=== PATIENT | female | born 1975 | race Two or more races ===

== ENCOUNTER 2025-03-30 22:12 | Emergency (ER) | payer MEDICAID, SELFPAY ==
[2025-03-30 22:15] VITALS: BMI 25.5
--- NOTE | 2025-03-30 22:56 | PD.EDHA ---
ED Headache RME/HPI General Chief Complaint: Headache Stated Complaint: HEADACH NAUSEA VOMITING Time Seen by Provider: 03/30/25 23:02 Arrival date/time: 03/30/25 22:12 RME / HPI RME / HPI Narrative: This section includes all my notes and documentations, including HPI, PE, and ED course. Ty Mitchell MD HPI: 49 y/o female presents to ED c/o progressively worsening headache x 3 days. Patient also reports epigastric abdominal pain, nausea, and vomiting x 3 days. With low back pain. Denies any fever or cough. No other complaints. ROS: All negative except as documented in HPI. Physical Exam: General: Alert and oriented. Appears uncomfortable. Eyes: Conjunctivae and lids clear. EOMI. PERRL. ENT: No nasal congestion. Pharynx normal. Tympanic membrane normal bilaterally. Neck: Supple. No carotid bruit. No JVD. Heart: RRR. Lungs: No respiratory distress. Good air movement. No rhonchi, wheezing, rales. Abdomen: Soft. Mild epigastric tenderness. Normal bowel sounds. No distension. No rebound or guarding. Back: No CVA tenderness. Skin: Warm and dry. Neuro: Alert and oriented X 3. Cranial Nerves II-XII grossly intact. No peripheral motor deficits. I reviewed all diagnostic test results. My review of the Gall Bladder US report is NAD. My review of the Abdomen/Pelvis CT report is NAD. My review of the Head/Brain CT report is NAD. My review of the Lumbar Spine CT report is NAD. Blood tests and urine tests unremarkable. At this point, diagnoses include probable migraine headache, GERD. Treatment here included Tylenol with Codeine, Zofran, famotidine, and Protonix. Significant improvement noted. Recommended more outpatient care. Based on my best medical judgment, made decision no further evaluation or treatment indicated at this time. Patient understands and agrees to the discharge instructions customized and printed, see below. Discharge Instructions from Dr. Mitchell printed for you: 1. After evaluation, your headache is probably due to migraine headache. And your abdominal pain is due to acid reflux. See attached handouts. There is no life-threatening condition. Such as stroke or brain tumor. 2. Zofran for nausea/vomiting. Tylenol with codeine for severe pain. 3. For acid reflux, famotidine and omeprazole as needed. 4. Avoid foods/beverages that can trigger acid reflux, see attached handout. 5. See a private doctor on 04/02/2025 for recheck and further care. Ask to review all test results and official radiology reports, to make sure you receive all necessary follow-ups and monitoring. To make sure there is no serious intra-abdominal condition, ask for help with more investigation not available here in the ER. Such as EGD or scoping the stomach, colonoscopy or scoping the colon, and referral to see latex thread machine operator. If your headache is persistent, ask for a referral to see neurologist and MRI imaging of the brain. 6. Seek immediate medical care with worsening or with any concerns. Ty Mitchell MD Related Data Previous Rx's ?Medication ?Instructions ?Recorded acetaminophen 300 mg-codeine 30 mg 2 tab PO Q8H PRN pain #20 tabs 03/31/25 tablet famotidine 40 mg tablet 40 mg PO .bedtime #30 tabs 03/31/25 omeprazole 40 mg capsule,delayed 40 mg PO QDAY #30 caps 03/31/25 release ondansetron 4 mg disintegrating 4 mg PO TID PRN nausea and 03/31/25 tablet vomiting 30 days #10 tabs Allergies Allergy/AdvReac Type Severity Reaction Status Date / Time No Known Allergies Allergy Verified 03/30/25 22:19 Review of Systems Review of Systems Systems Reviewed: All systems reviewed, normal except as documented Past Medical History Surgical History SURGICAL: Positive Tubal Ligation Social History SMOKING STATUS: Never smoker ED Exam Narrative Physical exam: Refer to HPI above Course Quality Measures none Orders Category Date Time Status CT abdomen pelvis wo con Stat Exams 03/30/25 22:[address] head/brain wo con Stat Exams 03/30/25 22:[address] lumbar spine wo con Stat Exams 03/30/25 22:58 Taken US gall bladder Stat Exams 03/30/25 22:59 Taken Amylase Stat Lab 03/30/25 23:16 Completed Bilirubin,Direct Stat Lab 03/30/25 23:16 Completed CBC Stat Lab 03/30/25 23:16 Completed CMP [Comprehensive Metabolic Panel] Stat Lab 03/30/25 23:16 Completed Lipase Stat Lab 03/30/25 23:16 Completed Magnesium Stat Lab 03/30/25 23:16 Completed UA, C/S IF [Urinalysis, C/S if Indicated] Stat Lab 03/30/25 23:29 Completed ACETAMINOPHEN w/COD 300-30 [Tylenol w/Cod #3] Med 03/30/25 22:57 Discontinued 2 tab PO X1 ONE Famotidine [Pepcid] Med 03/31/25 00:33 Discontinued 40 mg PO X1 ONE Ondansetron Odt [Zofran Odt] Med 03/30/25 22:57 Discontinued 4 mg PO X1 ONE Pantoprazole [Protonix] Med 03/31/25 00:33 Discontinued 40 mg PO X1 ONE Vital Signs Vital signs: Vital Signs Temperature 98 F 03/30/25 23:23 Pulse Rate 62 03/30/25 23:23 Respiratory Rate 18 03/30/25 23:23 Blood Pressure 134/74 H 03/30/25 23:23 Pulse Oximetry (%) 99 03/30/25 23:23 Oxygen Delivery Method Room Air 03/30/25 23:23 Headache MDM Narrative MDM Narrative:: Scribe Attestation: IIraida, am scribing for and in the presence of Dr. Mitchell. Provider Notation: Although this document has been carefully reviewed, there may still be some phonetic and other typographical errors.? These errors are purely grammatical due to imperfections in the software program and should not be construed in any way to? compromise the substance of the patient's medical care during this visit. 49 y/o female presents to ED c/o progressively worsening headache x 3 days that is worse today. Patient also reports left flank pain, abdominal pain, nausea, and vomiting x 3 days. Denies any fever or cough. No other complaints. Patient data External records reviewed:: [facility] previous records (No prior ED records available for review) Clinical information provided by:: patient Social determinants that could affect healthcare access:: none Patient has the following chronic illnesses:: None reported How is presenting disease/condition affected by chronic disease/condition?: no chronic disease Evaluation data The following diagnostics were reviewed and interpreted by me:: lab results and radiology exam(s) Lab and/or radiology exams considered but not ordered:: None Interpretation Summary: I reviewed all diagnostic test results. My review of the Gall Bladder US report is NAD. My review of the Abdomen/Pelvis CT report is NAD. My review of the Head/Brain CT report is NAD. My review of the Lumbar Spine CT report is NAD. Blood tests and urine tests unremarkable. Medications / Prescriptions Medications or Prescriptions considered but not ordered:: None Medication administrations:: Medication Administration History Discontinued Medications Acetaminophen/Codeine Phosphate (Acetaminophen W/Cod 300-30 Tablet) 2 tab PO X1 ONE Stop: 03/30/25 22:58 Last Admin: 03/30/25 23:23 Dose: 2 tab Documented By: RONALD Famotidine (Famotidine 20 Mg Tablet) 40 mg PO X1 ONE Stop: 03/31/25 00:34 Last Admin: 03/31/25 01:03 Dose: 40 mg Documented By: JEREMY Ondansetron HCl (Ondansetron Odt 4 Mg Tabrap) 4 mg PO X1 ONE; Protocol Stop: 03/30/25 22:58 Last Admin: 03/30/25 23:22 Dose: 4 mg Documented By: RONALD Pantoprazole Sodium (Pantoprazole 40 Mg Tablet) 40 mg PO X1 ONE Stop: 03/31/25 00:34 Last Admin: 03/31/25 01:03 Dose: 40 mg Documented By: JEREMY Tylenol with Codeine, Zofran, famotidine, and Protonix. Consultations Consultation(s) initiated? (list below): No Diagnosis Differential diagnosis headache: migraine, tension headache, subarachnoid hemorrhage, headache, postconcussion syndrome and other (Gastritis, GERD, renal colic) Most likely diagnosis given after review of the tests above:: Headache, GERD Admission Indicated Admission indicated?: not indicated Explain why admission is indicated or not indicated:: With significant improvement, there was no indication for admission. Admission Request Was there a request for admission?: No Disposition Plan Disposition Plan: Discharge Discharge Attestation Discharge Attestation: The patient and all family members were given an opportunity to ask questions and understood the discharge instructions. Discharge instructions specifically effects, indications for sooner follow up or return to the emergency department, and the expected course of current diagnosis. Patient condition: Stable Discharge Plan Plan Patient Disposition: HOME (Self Care) Prescriptions/Referrals Prescriptions/Med Rec: New famotidine 40 mg tablet 40 mg PO .bedtime Qty: 30 0RF acetaminophen-codeine 300-30 mg tablet 2 tab PO Q8H MDD 6 PRN (Reason: pain) Qty: 20 0RF omeprazole 40 mg capsule,delayed release(DR/EC) 40 mg PO QDAY Qty: 30 0RF ondansetron 4 mg tablet,disintegrating 4 mg PO TID PRN (Reason: nausea and vomiting) 30 Days Qty: 10 0RF Referrals: Deepak Cee MD [Primary Care Provider] - In 1 week Problem List Clinical Impression: Headache, GERD (gastroesophageal reflux disease) Patient/Caregiver Discharge Instructions Discharge Activity: activity as tolerated Education Materials: ED GERD (Adult), ED Headache, Migraine, Classic Additional Instructions: Discharge Instructions from Dr. Mitchell printed for you: 1. After evaluation, your headache is probably due to migraine headache. And your abdominal pain is due to acid reflux. See attached handouts. There is no life-threatening condition. Such as stroke or brain tumor. 2. Zofran for nausea/vomiting. Tylenol with codeine for severe pain. 3. For acid reflux, famotidine and omeprazole as needed. 4. Avoid foods/beverages that can trigger acid reflux, see attached handout. 5. See a private doctor on 04/02/2025 for recheck and further care. Ask to review all test results and official radiology reports, to make sure you receive all necessary follow-ups and monitoring. To make sure there is no serious intra-abdominal condition, ask for help with more investigation not available here in the ER. Such as EGD or scoping the stomach, colonoscopy or scoping the colon, and referral to see latex thread machine operator. If your headache is persistent, ask for a referral to see neurologist and MRI imaging of the brain. 6. Seek immediate medical care with worsening or with any concerns. Instrucciones de henrique del Dr. Mitchell, impresas para usted: 1. Tras la evaluaci?n, wong dolor de jay probablemente se deba a herbert migra?a. Y wong dolor abdominal se debe a reflujo ?cido. Consulte los folletos adjuntos. No existe ninguna afecci?n potencialmente mortal, ivonne un derrame cerebral o un tumor cerebral. 2. Zofran para las n?useas y los v?mitos. Tylenol con code?na para el dolor intenso. 3. Para el reflujo ?cido, famotidina y omeprazol seg?n sea necesario. 4. Evite los alimentos y bebidas que puedan desencadenar el reflujo ?cido. Consulte el folleto adjunto. 5. Consulte con un m?dico particular el 02/04/2025 para herbert nueva revisi?n y atenci?n adicional. Solicite la revisi?n de todos los resultados de las pruebas y los informes radiol?gicos oficiales para asegurarse de recibir todos los seguimientos y la monitorizaci?n necesarios. Para asegurarse de que no exista herbert afecci?n intraabdominal grave, solicite ayuda con otras pruebas que no est?n disponibles en la marivel de emergencias. Ivonne herbert endoscopia estomacal (EGD) o herbert endoscopia g?strica, herbert colonoscopia o herbert endoscopia de colon, y derivaci?n a un gastroenter?logo. Si el dolor de jay persiste, solicite herbert derivaci?n a un neur?logo y herbert resonancia magn?ronna cerebral. 6. Busque atenci?n m?dica inmediata si el dolor empeora o si tiene alguna inquietud. Print Language: [place] Stand Alone Forms: Catherine Award Info., Patient Portal Info Letter
--- NOTE | 2025-03-30 22:58 | XR_ITS ---
Examination: CT abdomen and pelvis without contrast. Coronal 3-D reconstructions. Sagittal 2-D reconstructions. Date and time of exam:March 31, 2025 0030 hours INDICATIONS: Left flank pain and abdominal pain nausea vomiting beginning 3 days ago CTDI: vol (mGy): 6.33 DLP: (mGycm): 326 Technique: Axial images of the abdomen have been obtained, 3 mm slice thickness Intravenous contrast material has not been administered. Low dose protocols were performed. One or more of the following dose reduction techniques were used; automated exposure control, adjustment of the mA and/or KV according to patient size, use of iterative reconstruction technique. Findings: Trace pericardial thickening No focal liver or splenic lesion No gallstones No pancreatic or adrenal mass No renal or ureteral calculi, no hydronephrosis Aorta normal size No pericecal inflammatory change No bowel obstruction or diverticulitis No pelvic mass Atrophic uterus The osseous structures are intact IMPRESSION: No acute process in the abdomen or pelvis
--- NOTE | 2025-03-30 22:58 | XR_ITS ---
Examination: CT lumbar spine, without contrast. 2-D sagittal reconstructions. 2-D coronal reconstructions. 3-D reconstructions. Date and time of exam:March 31, 2025, 0033 hours INDICATIONS: Low back pain radiating to the left leg beginning 3 days ago CTDI: vol (mGy):16.5 DLP: (mGycm):420 Technique: Multiple 1.25 mm axial sections of the lumbar spine without intravenous contrast have been obtained. 2-D sagittal and coronal reconstructions have been obtained. 3-D reconstructions have been obtained. Low dose protocols were performed. One or more of the following dose reduction techniques were used; automated exposure control, adjustment of the mA and/or KV according to patient size, use of iterative reconstruction technique. Findings: Adequate alignment lumbar vertebral bodies The lumbar vertebral body fracture Transitional L5 vertebral body. Lumbar pedicles lamina transverse and posterior spinous processes intact L5-S1 no disc protrusion L4-L5 3 mm central lumbar disc bulge with left neural foraminal stenosis producing mild left L4 ganglionic compression More cephalad levels unremarkable IMPRESSION: L4-L5 3 mm central lumbar disc bulge with left neural foraminal stenosis producing mild left L4 ganglionic compression Consider elective MRI lumbar spine follow-up to best assess full extent of acquired spinal stenosis
--- NOTE | 2025-03-30 22:59 | XR_ITS ---
Examination: CT brain head without contrast. 2-D sagittal coronal reconstructions Date and time of exam:March 31, 2025 0026 hours INDICATIONS: Severe headache with vomiting beginning 3 days ago CTDI: vol (mGy):44 DLP: (mGycm):846 Technique: Multiple CT axial sections of the brain have been obtained, 5 mm slice thickness. Contrast has not been administered. 2-D sagittal, coronal reconstructions have been obtained Low dose protocols were performed. One or more of the following dose reduction techniques were used; automated exposure control, adjustment of the mA and/or KV according to patient size, use of iterative reconstruction technique. Findings: No significant ventricular enlargement. Intra-axial or extra-axial hemorrhage density is not seen. No mass effect or midline shift Basal cisterns are not remarkable. Fourth ventricle is midline. Cranial vault intact. Impression: Negative for acute hemorrhage, mass effect or midline shift
--- NOTE | 2025-03-30 22:59 | XR_ITS ---
Examination: Abdomen sonogram, Limited Date and time of exam: March 30, 2025 at 1143 hours INDICATIONS: Right upper abdominal pain with nausea and vomiting beginning 4 weeks ago Technique: Real-time burt scale transabdominal sonographic images of the upper abdomen obtained. Findings: Normal gallbladder. Normal common bile duct 0.3 cm Pancreas obscured by bowel gas Liver 12.9 cm no focal liver lesions Normal hepatopedal portal venous flow Patent IVC IMPRESSION: Normal gallbladder Fatty liver
[2025-03-30] MEDS: ONDANSETRON ODT 4 MG TABRAP PO (23:22)
[2025-03-30 23:23] VITALS: BP 134/74; PULSE 62; RESP 18; TEMP 36.6; O2SAT 99
[2025-03-30] MEDS: ACETAMINOPHEN w/COD 300-30 TABLET 2 TAB PO (23:23)
[2025-03-30 23:34] LABS: Collection Type, Urine Clean Catch
[2025-03-30 23:54] LABS: Basophils # (Auto) 0.1 Thou/mm3 (0.0-0.2); Basophils % (Auto) 1 % (0-2.5); Eosinophils # (Auto) 0.1 Thou/mm3 (0.0-0.5); Eosinophils % (Auto) 1 % (0-10); Hemoglobin 13.3 g/dL (12.0-16.0); Immature Granulocytes % (Auto) 0 % (0-0); Immature Granulocytes Auto 0.03 Thou/mm3 (0.00-0.00); Lymphocytes # (Auto) 2.3 Thou/mm3 (1.0-4.8); Lymphocytes % (Auto) 27 % (10-50); Mean Corpuscular HGB Conc 35.9 g/dl (31.0-37.0); Mean Corpuscular Hemoglobin 31.9 pg (25.0-35.0); Mean Corpuscular Volume 89 fL (80-100); Monocytes # (Auto) 0.3 Thou/mm3 (0.0-0.8); Monocytes % (Auto) 3 % (0-12); Neutrophils # (Auto) 5.9 Thou/mm3 (1.8-7.7); Neutrophils % (Auto) 68 % (37-80); Nucleated Red Blood Cell % 0 /100 WBC (0); Platelet Count 241 Thou/mm3 (140-440); RDW Standard Deviation 41.9 fL (36.4-46.3); Red Blood Count 4.17 Miln/mm3 (4.00-5.20); White Blood Count 8.7 Thou/mm3 (3.6-11.0)
[2025-03-30 23:56] LABS: Bilirubin,Urine Negative (Negative); Blood,Urine Negative (Negative); Clarity,Urine Clear (Clear/Hazy); Color,Urine Lt-Yellow (Lt Yel-Yel); Culture Indicated,Urine Not Indicated; Glucose, Urine Negative (Negative); Ketones,Urine Negative (Negative); Leukocyte Esterase,Urine Positive (Negative); Nitrite,Urine Negative (Negative); Protein,Urine Negative (Neg - Trace); RBC,Urine 3 /hpf (0-3); Specific Gravity,Urine 1.029 (1.001-1.035); Squamous Epithelial Cell,Urine 4 /hpf (0-5); Urobilinogen,Urine Negative mg/dL (0.0-1.0); WBC,Urine 4 /hpf (0-5)
[2025-03-30 23:59] LABS: Alanine Aminotransferase 28 U/L (10-49); Albumin, Serum 4.6 gm/dL (3.5-5.0); Albumin/Globulin Ratio 1.9 (1.2-2.2); Alkaline Phosphatase 122 U/L (46-116); Amylase 37 U/L (30-118); Anion Gap 12 (7-16); Aspartate Amino Transferase 19 U/L (0-34); BUN/Creatinine Ratio 33 Ratio (12-20); Bilirubin,Direct < 0.1 mg/dL (0.0-0.3); Bilirubin,Total 0.5 mg/dL (0.3-1.2); Blood Urea Nitrogen 23 mg/dL (9-23); Carbon Dioxide 26.6 mMol/L (20.0-31.0); Chloride 104 mMol/L (98-107); Creatinine (Component) 0.7 mg/dL (0.6-1.3); Estimated Creatinine Clearance 75.1 mL/min (>60); Globulin 2.4 gm/dL (2.3-3.5); Glucose 156 mg/dL (74-106); Lipase 34 U/L (12-53); Magnesium 2.2 mg/dL (1.6-2.6); Osmolality,Calculated 291 (275-295); Potassium 3.4 mMol/L (3.4-5.1); Sodium 143 mMol/L (136-145); eGFR > 60 See Note
[2025-03-31] MEDS: FAMOTIDINE 20 MG TABLET 40 MG PO (01:03)
[2025-03-31] MEDS: PANTOPRAZOLE 40 MG TABLET PO (01:03)
--- NOTE | 2025-03-31 01:22 | PRELIM_ITS ---
CT scan of the head without intravenous contrast (axial sections with sagittal and coronal reformats). March 31, 2025 0026 hours Clinical History: severe headache Comparison: No prior study is available for comparison. Findings: No evidence of intracranial hemorrhage, mass effect or midline shift. The ventricles and CSF spaces are unremarkable. The calvarium is unremarkable. The mastoid air cells and the visualized paranasal sinuses are clear. Impression: No evidence of intracranial hemorrhage, mass effect or midline shift. Report Electronically Signed By: Catrachito Ny 03/31/2025 1:21:59 AM [EST]
--- NOTE | 2025-03-31 01:24 | PRELIM_ITS ---
CT scan of the lumbar spine without intravenous contrast (axial sections with sagittal and coronal reformats) March 31, 2025 0033 hours Clinical History: LBP radiating into left leg Comparison: No prior study is available for comparison. Findings: There is no fracture or subluxation. There is a 1.5 cm hemangioma in the body of T11 vertebra (incompletely imaged). Sacralization of the L5 vertebra is present. Mild osseous degenerative changes are noted. The soft tissues are unremarkable. Impression: No evidence of fracture, subluxation or significant soft tissue injury. Other findings as described above. Report Electronically Signed By: Catrachito Ny 03/31/2025 1:24:07 AM [EST]
--- NOTE | 2025-03-31 01:26 | PRELIM_ITS ---
CT scan of the abdomen and pelvis without intravenous contrast (axial sections with sagittal and coronal reformats) March 31, 2025 0030 hours Clinical History: ABD PAIN Comparison: No prior study is available for comparison. Findings: The lung bases are clear. The liver, gallbladder, pancreas, spleen, kidneys and adrenals are unremarkable on this noncontrast study. No evidence of bowel obstruction. The appendix is within normal limits (image [id number]). There is no mesenteric or retroperitoneal adenopathy. The urinary bladder is unremarkable. The uterus and adnexa are unremarkable. There is no free fluid or free air. Mild osseous degenerative changes are noted. There is a 1.5 cm hemangioma in the body of T11 vertebra. Sacralization of the L5 vertebra is present. Impression: No evidence of acute intra-abdominal or pelvic pathology. Other findings as described above. Report Electronically Signed By: Catrachito Ny 03/31/2025 1:25:26 AM [EST]
--- NOTE | 2025-03-31 01:34 | PRELIM_ITS ---
Ultrasound Abdomen. March 30, 2025 2343 hours Clinical history: RUQ tenderness Technique: Grayscale and color flow images of the abdomen are provided. Hepatic and portal veins were also imaged with color flow images. Comparison: No prior study is available for comparison. Findings: The liver is normal in echogenicity. No intrahepatic biliary ductal dilatation. No gallbladder calculus, wall thickening or pericholecystic fluid is demonstrated. The common bile duct is normal in caliber at 3mm. No free fluid is demonstrated on the submitted images. Impression: Unremarkable abdominal sonogram. Report Electronically Signed By: Catrachito Ny 03/31/2025 1:32:56 AM [EST]
== END 2025-03-31 01:53 | disposition home or self-care (01) ==
PROVIDERS: Emergency Provider Emergency Medicine; PCP Family Medicine
DX: R51.9 Headache, unspecified (principal); K21.9 Gastro-esophageal reflux disease without esophagitis; M54.50 Low back pain, unspecified
CPT/HCPCS: 36415; 70450; 72131; 74176; 76705; 80053; 81001; 82150; 82248; 83690; 83735; 85025; 99284; Q0162; A9270

== ENCOUNTER 2025-03-31 19:00 | Emergency (ER) | payer MEDICAID, SELFPAY ==
[2025-03-31 19:00] VITALS: BMI 25.4
[2025-03-31 19:34] VITALS: BP 136/78; PULSE 57; RESP 18; TEMP 36.6; O2SAT 96
[2025-03-31] MEDS: DIAZEPAM 5 MG TABLET PO (20:14)
--- NOTE | 2025-03-31 20:17 | EDNOTE_ITS ---
Nausea/Vomit./Diarrhea-RME/HPI General Chief complaint: Allergic Reaction Stated complaint: REACTION TO MEDS GIVEN YESTERDAY Time Seen by Provider: 03/31/25 20:06 Arrival date/time: 03/31/25 19:00 49F with no significant PMH presents to ED with generalized body tingling/aches after she took Zofran and Tylenol #3 today. Patient was here yesterday with normal work-up and diagnosis of GERD. Limitations: no limitations Related Data Previous Rx's ?Medication ?Instructions ?Recorded acetaminophen 300 mg-codeine 30 mg 2 tab PO Q8H PRN pa in #20 tabs 03/31/25 tablet famotidine 40 mg tablet 40 mg PO .bedtime #30 tabs 0 03/31/25 omeprazole 40 mg capsule,delayed 40 mg PO QDAY #30 cap s 03/31/25 release ondansetron 4 mg disintegrating 4 mg PO TID PRN nausea and 03/31/25 tablet vomiting 30 days #10 tabs Allergies Allergy/AdvReac Type Severity Reaction Status Date / Time No Known Allergies Allergy Verified 03/30/25 22:19 Review of Systems Review of Systems Systems Reviewed: All systems reviewed, normal except as documented Constitutional Constitutional: Reports system reviewed and no additional complaints, except as documented, Reports as per HPI, Reports body ache(s), Denies fever(s) and Denies headache(s) ENT Ears, Nose, Mouth, and Throat: Denies disequilibrium and Denies headache(s) Cardiovascular Cardiovascular: Reports system reviewed and no additional complaints, except as documented, Denies chest pain and Denies dyspnea Respiratory Respiratory: Reports system reviewed and no additional complaints, except as documented, Denies cough and Denies dyspnea Gastrointestinal Gastrointestinal: Reports system reviewed and no additional complaints, except as documented, Denies abdominal pain, Denies nausea and Denies vomiting Musculoskeletal Musculoskeletal: Reports tingling Neurologic Neurologic: Reports system reviewed and no additional complaints, except as documented, Reports as per HPI, Denies confusion, Denies disequilibrium, Denies headache(s) and Reports tingling Psychiatric Psychiatric: Denies confusion Past Medical History Surgical History SURGICAL: Positive Tubal Ligation Social History SMOKING STATUS: Never smoker ED Exam General Limitations: Present no limitations General appearance: Present alert, in no apparent distress and anxious Head Head exam: Present atraumatic Eye Eye exam: Present normal appearance, PERRL and EOMI ENT ENT exam: Present normal exam, normal oropharynx and mucous membranes moist Neck Neck exam: Present normal inspection, full ROM and trachea midline Chest Chest inspection: Present normal inspection and symmetric chest wall rise Respiratory Respiratory exam: Present normal lung sounds bilaterally Cardiovascular Cardiovascular exam: Present regular rate, normal rhythm and normal heart sounds Abdominal Exam Abdominal exam: Present soft and normal bowel sounds Extremities Exam Extremities exam: Present normal inspection and full ROM Back Exam Back exam: Present normal inspection and full ROM Neurological Exam Neurological exam: Present alert, oriented X3 and CN II-XII intact Psychiatric Psychiatric exam: Present normal affect and normal mood Skin Skin exam: Present warm, dry, intact and normal color Course Quality Measures none Orders Category Date Time Status Diazepam [Valium] Med 03/31/25 20:09 Discontinued 5 mg PO X1 ONE Vital Signs Vital signs: Vital Signs Temperature 97.8 F 03/31/25 19:34 Pulse Rate 57 L 03/31/25 19:34 Respiratory Rate 18 03/31/25 19:34 Blood Pressure 136/78 H 03/31/25 19:34 Pulse Oximetry (%) 96 03/31/25 19:34 Oxygen Delivery Method Room Air 03/31/25 19:34 O2 at 96% on RA and WNLs Nausea/Vomiting/Diarrhea MDM Narrative MDM Narrative:: 49F with no significant PMH presents to ED with generalized body tingling/aches after she took Zofran and Tylenol #3 today. Patient was here yesterday with normal work-up and diagnosis of GERD. Physical exam reveals well-appearing female. Patient is afebrile, alert, but anxious. Patient felt better after Valium. Patient left prior to signing paperwork. Patient data External records reviewed:: [facility] previous records Clinical information provided by:: patient Social determinants that could affect healthcare access:: none Patient has the following chronic illnesses:: none How is presenting disease/condition affected by chronic disease/condition?: no chronic disease Evaluation data The following diagnostics were reviewed and interpreted by me:: other (specify) (none) Lab and/or radiology exams considered but not ordered:: not ordered Interpretation Summary: n/a Medications / Prescriptions Medications / Prescriptions considered but not ordered:: ordered Medication administrations:: Medication Administration History Discontinued Medications Diazepam (Diazepam 5 Mg Tablet) 5 mg PO X1 ONE Stop: 05/28/25 20:10 Last Admin: 03/31/25 20:14 Dose: 5 mg Documented By: GARLAND above Consultations Consultation(s) initiated? (list below): No Diagnosis Nausea Differential Diagnosis: traveler's diarrhea, food poisoning, gastroenteritis, clostridium difficile infection, drug-induced nausea and vomiting, dehydration and other (anxiety) Most likely diagnosis given after review of the tests above:: anxiety Admission Indicated Admission indicated?: not indicated Admission Request Was there a request for admission?: No Disposition Plan Disposition Plan: Discharge Discharge Attestation Discharge Attestation: The patient and all family members were given an opportunity to ask questions and understood the discharge instructions. Discharge instructions specifically effects, indications for sooner follow up or return to the emergency department, and the expected course of current diagnosis. Patient condition: Stable Discharge Plan Plan Patient Disposition: HOME (Self Care) Discharge Disposition comment: Stable Prescriptions/Referrals Prescriptions/Med Rec: No Action famotidine 40 mg tablet 40 mg PO .bedtime Qty: 30 0RF acetaminophen-codeine 300-30 mg tablet 2 tab PO Q8H MDD 6 PRN (Reason: pain) Qty: 20 0RF omeprazole 40 mg capsule,delayed release(DR/EC) 40 mg PO QDAY Qty: 30 0RF ondansetron 4 mg tablet,disintegrating 4 mg PO TID PRN (Reason: nausea and vomiting) 30 Days Qty: 10 0RF Referrals: Temporary Provider,ED [Physician] - In 1 week Problem List Clinical Impression: Anxiety Patient/Caregiver Discharge Instructions Education Materials: Your Body's Response to Anxiety Additional Instructions: Please follow-up with PCP within 24-48 hours and return immediately if symptoms worsen. Print Language: Monegasque Stand Alone Forms: Patient Portal Info Letter JOE/MARCUS Supervising Physician JOE/MARCUS Supervising Physician: Dr. Mitchell
--- NOTE | 2025-03-31 20:57 | PC.NURSE ---
PT DID NOT WANT TO WAIT FOR DISCHARGE PAPERS.
== END 2025-03-31 21:03 | disposition home or self-care (01) ==
PROVIDERS: Emergency Provider Emergency Medicine
DX: F41.9 Anxiety disorder, unspecified (principal)
CPT/HCPCS: 99282; A9270